=== PATIENT | female | born 1965 | race Caucasian/White ===

== ENCOUNTER 2019-03-26 07:41 | Outpatient (CLI) | payer BC, OTHER ==
[2019-03-26 08:54] LABS: BASOPHILS % (AUTO) 0.4 % (0.0-2.0); EOSINOPHILS # (AUTO) 0.2 K/uL (0.0-0.7); EOSINOPHILS % (AUTO) 2.6 % (0.0-7.0); HEMATOCRIT 39.6 % (31.2-41.9); HEMOGLOBIN 12.6 g/dL (10.9-14.3); LYMPHOCYTES # (AUTO) 1.9 K/uL (20.0-40.0); LYMPHOCYTES % (AUTO) 26.1 % (20.5-51.5); MEAN CORPUSCULAR HEMOGLOBIN 26.1 uug (24.7-32.8); MEAN CORPUSCULAR HGB CONC 32 g/dL (32.3-35.6); MEAN CORPUSCULAR VOLUME 81.8 fL (75.5-95.3); MONOCYTES # (AUTO) 0.7 K/uL (2.0-10.0); MONOCYTES % (AUTO) 9.2 % (0.0-11.0); NEUTROPHILS # (AUTO) 4.5 K/uL (1.8-8.9); NEUTROPHILS % (AUTO) 61.7 % (38.5-71.5); PLATELET COUNT (AUTO) 302 K/uL (179-408); RED BLOOD CELL COUNT(AUTO) 4.84 MIL/uL (3.63-4.92); WHITE BLOOD COUNT (AUTO) 7.2 K/uL (3.8-11.8)
[2019-03-26 09:11] LABS: *BILIRUBIN,URIN 2+ (NEGATIVE); *BLOOD, URINE NEGATIVE (NEGATIVE); *CLARITY,URINE CLEAR (CLEAR); *COLOR,URINE YELLOW (YELLOW); *KETONES,URINE 1+ (NEGATIVE); *UROBILINOGEN,URINE 0.2 E.U./dl (NORMAL); LEUKOCYTE ESTERASE ,URINE NEGATIVE (NEGATIVE); NITRITE, URINE NEGATIVE (NEGATIVE); UGLUCOSE NEGATIVE (NEGATIVE)
[2019-03-26 09:20] LABS: THYROID STIMULATING HORMONE 2.612 mIU/mL (0.358-3.740)
[2019-03-26 09:37] LABS: BILIRUBIN,TOTAL 0.6 mg/dL (0.2-1.0); CREATININE 1.1 mg/dL (0.6-1.3); POTASSIUM 3.5 mmol/L (3.5-5.1); TOTAL PROTEIN, SERUM 7.9 g/dL (6.4-8.2)
[2019-03-26 10:53] LABS: BACTERIA,URINE FEW /HPF (NONE SEEN); RBC,URINE 0-3 /HPF (0-3); SQUAMOUS EPITHELIAL CELL,UR FEW /HPF (NONE SEEN); WBC,URINE 0-3 /HPF (0-3)
[2019-03-27 06:06] LABS: FOLLICLE STIMULATION HORMONE 64.6 mIU/mL (.); LUTEINIZING HORMONE 26.3 mIU/mL (.)
== END 2019-03-26 23:59 | disposition home or self-care (01) ==
LOC: LAB 07:41
PROVIDERS: ATTEND Legal Medicine
DX: Z00.00 Encounter for general adult medical examination without abnormal findings (principal); I10 Essential (primary) hypertension; E03.9 Hypothyroidism, unspecified; D68.59 Other primary thrombophilia
CPT/HCPCS: 83001; 83002; 83550; 84443; 85025; 87086

== ENCOUNTER 2021-08-10 05:29 | Emergency (ER) | payer BC, OTHER ==
[~2021-08-10] VITALS: Ht 170.2 cm; Wt 90.7 kg
--- NOTE | 2021-08-10 06:20 | NUR ---
Patient eloped from facility. ER physician notified.
== END 2021-08-10 06:20 | disposition left against medical advice (07) ==
LOC: ER 05:43
DX: Z53.21 Procedure and treatment not carried out due to patient leaving prior to being seen by health care provider (principal)

== ENCOUNTER 2021-11-02 08:06 | Outpatient (CLI) | payer BC, OTHER ==
[2021-11-02 08:45] LABS: HEMATOCRIT 36.8 % (31.2-41.9); MEAN CORPUSCULAR HEMOGLOBIN 27.8 uug (24.7-32.8); MEAN CORPUSCULAR VOLUME 83.6 fL (75.5-95.3); PLATELET COUNT (AUTO) 256 K/uL (179-408)
[2021-11-02 09:18] LABS: BILIRUBIN,TOTAL 0.3 mg/dL (0.2-1.0); CREATININE 0.7 mg/dL (0.6-1.3); POTASSIUM 3.7 mmol/L (3.5-5.1); TOTAL PROTEIN, SERUM 7.3 g/dL (6.4-8.2); URIC ACID 3.9 mg/dL (2.6-6.0)
[2021-11-02 09:59] LABS: THYROID STIMULATING HORMONE 1.38 mIU/mL (0.358-3.740)
[2021-11-02 12:04] LABS: *BILIRUBIN,URIN NEGATIVE (NEGATIVE); *BLOOD, URINE NEGATIVE (NEGATIVE); *COLOR,URINE YELLOW (YELLOW); *KETONES,URINE NEGATIVE (NEGATIVE); *UROBILINOGEN,URINE 0.2 E.U./dl (NORMAL); LEUKOCYTE ESTERASE ,URINE NEGATIVE (NEGATIVE); NITRITE, URINE POSITIVE (NEGATIVE); UGLUCOSE NEGATIVE (NEGATIVE)
[2021-11-02 16:39] LABS: *CLARITY,URINE SLIGHTLY CLOUDY (CLEAR); BACTERIA,URINE FEW /HPF (NONE SEEN); RBC,URINE 0-3 /HPF (0-3); SQUAMOUS EPITHELIAL CELL,UR FEW /HPF (NONE SEEN)
[2021-11-02 16:40] LABS: URINE AMORPHOUS URATE MODERATE /HPF
== END 2021-11-02 23:59 | disposition home or self-care (01) ==
LOC: LAB 08:06
PROVIDERS: ATTEND Legal Medicine
DX: E03.9 Hypothyroidism, unspecified (principal); E55.9 Vitamin D deficiency, unspecified; E78.5 Hyperlipidemia, unspecified; D64.9 Anemia, unspecified; D68.59 Other primary thrombophilia; R53.1 Weakness; Z00.00 Encounter for general adult medical examination without abnormal findings
CPT/HCPCS: 36415; 82306; 82746; 83550; 84443; 84550; 85025; 85305; 87077; 87086

== ENCOUNTER 2022-04-07 07:20 | Outpatient (CLI) | payer BC, OTHER | END 2022-04-07 23:59 | disposition home or self-care (01) | LOC: LAB 07:20 | PROVIDERS: ATTEND Internal Medicine Gastroenterology | DX: Z01.812 Encounter for preprocedural laboratory examination (principal); Z20.822 Contact with and (suspected) exposure to COVID-19 ==

== ENCOUNTER 2022-04-10 07:47 | Day surgery (SDC) | payer BC, OTHER ==
[2022-04-10 08:37] LABS: HEMATOCRIT 39.5 % (31.2-41.9); MEAN CORPUSCULAR HEMOGLOBIN 26.4 uug (24.7-32.8); MEAN CORPUSCULAR VOLUME 82.1 fL (75.5-95.3); PLATELET COUNT (AUTO) 265 K/uL (179-408)
[2022-04-10 08:37] LABS: *BILIRUBIN,URIN NEGATIVE (NEGATIVE); *BLOOD, URINE NEGATIVE (NEGATIVE); *CLARITY,URINE CLEAR (CLEAR); *COLOR,URINE YELLOW (YELLOW); *KETONES,URINE NEGATIVE (NEGATIVE); *UROBILINOGEN,URINE 0.2 E.U./dl (NORMAL); LEUKOCYTE ESTERASE ,URINE NEGATIVE (NEGATIVE); NITRITE, URINE NEGATIVE (NEGATIVE); PH,URINE 5.5 (5.0-8.0); UGLUCOSE NEGATIVE (NEGATIVE)
[2022-04-10] MEDS ORDERED: FENTANYL CITRATE 100 MCG/2 ML AMPUL ONE (08:41)
[2022-04-10 08:43] LABS: CREATININE 0.8 mg/dL (0.6-1.3); POTASSIUM 3.7 mmol/L (3.5-5.1)
[2022-04-10 08:54] LABS: BILIRUBIN,TOTAL 0.4 mg/dL (0.2-1.0); TOTAL PROTEIN, SERUM 7.1 g/dL (6.4-8.2)
[2022-04-10] MEDS ORDERED: PROPOFOL 200 MG/20 ML BOTTLE ONE (10:55)
[2022-04-10] MEDS ORDERED: LIDOCAINE-MPF 2% 5 ML VIAL ONE (10:55)
== END 2022-04-10 11:33 | disposition home or self-care (01) ==
LOC: DS 07:47
PROVIDERS: ATTEND Internal Medicine Gastroenterology
DX: Z12.11 Encounter for screening for malignant neoplasm of colon (principal); K63.89 Other specified diseases of intestine; K64.8 Other hemorrhoids; I10 Essential (primary) hypertension; J45.909 Unspecified asthma, uncomplicated; Z79.899 Other long term (current) drug therapy; Z98.890 Other specified postprocedural states; Z88.0 Allergy status to penicillin; Z80.0 Family history of malignant neoplasm of digestive organs; Z79.01 Long term (current) use of anticoagulants
CPT/HCPCS: 45378; 71045; 80053; 81003; 85025; 85730; 36415; 93005; J3490; J3010; J7120; A4663

== ENCOUNTER 2022-09-12 13:44 | Emergency (ER) | payer BC, OTHER ==
[~2022-09-12] VITALS: Ht 170.2 cm; Wt 90.7 kg
[2022-09-12] MEDS ORDERED: provigil PO (14:00)
[2022-09-12] MEDS ORDERED: BUPR200T2 PO (14:00)
[2022-09-12] MEDS ORDERED: AMLO1TAB12 PO (14:00)
[2022-09-12 14:32] LABS: HEMATOCRIT 35.8 % (31.2-41.9); MEAN CORPUSCULAR HEMOGLOBIN 25.8 uug (24.7-32.8); MEAN CORPUSCULAR VOLUME 80.4 fL (75.5-95.3); PLATELET COUNT (AUTO) 324 K/uL (179-408)
[2022-09-12 14:52] LABS: ALANINE AMINOTRANSFERASE 30 U/L (14-59); ALKALINE PHOSPHATASE 126 U/L (50-136); ASPARTATE AMINOTRANSFERASE 13 U/L (15-37); BILIRUBIN,TOTAL 0.3 mg/dL (0.2-1.0); CARBON DIOXIDE 27 mmol/L (21-32); CHLORIDE 106 mmol/L (98-107); CREATININE 0.7 mg/dL (0.6-1.3); GLUCOSE 100 mg/dL (74-106); POTASSIUM 3.8 mmol/L (3.5-5.1); TOTAL PROTEIN, SERUM 7.1 g/dL (6.4-8.2); UREA NITROGEN, BLOOD 11 mg/dL (7-18)
--- NOTE | 2022-09-12 18:29 | NUR ---
MD discharge patient herself. Patient is an employee in our hospital. She verbalized understanding of discharge instructions. Gyne doctor Yaquelin was referred to this patient.
--- NOTE | 2022-09-12 18:30 | NUR ---
Patient discharged to home in stable condition with brisk steady gait. Written and verbal after care instructions given. Patient verbalized understanding and compliance of instructions. Stressed follow up with primary doctor and [employer] or return to ER for worsening s/s.
== END 2022-09-12 18:30 | disposition home or self-care (01) ==
LOC: ER 13:44
DX: N95.0 Postmenopausal bleeding (principal); D64.9 Anemia, unspecified; I10 Essential (primary) hypertension; F32.A Depression, unspecified; Z79.899 Other long term (current) drug therapy; Z88.0 Allergy status to penicillin
CPT/HCPCS: 36415; 76856; 85025; 85730; 86850; 86900; 86901; A4663

== ENCOUNTER 2024-07-16 07:45 | Emergency (ER) | payer BC, OTHER ==
[~2024-07-16] VITALS: Ht 170.2 cm; Wt 86.2 kg
[~2024-07-16 07:45] MED LIST: AMLO1TAB12 PO; BUPR200T2 PO; provigil PO
[2024-07-16 07:52] VITALS: O2SAT 99
[2024-07-16] MEDS ORDERED: FLAS1EAC2 TP (08:27)
[2024-07-16] MEDS ORDERED: FLAS1KIT2 TP (08:27)
== END 2024-07-16 08:55 | disposition home or self-care (01) ==
LOC: ER 07:45
DX: L98.499 Non-pressure chronic ulcer of skin of other sites with unspecified severity (principal); I10 Essential (primary) hypertension; F32.A Depression, unspecified; Z79.899 Other long term (current) drug therapy; Z98.51 Tubal ligation status; Z88.0 Allergy status to penicillin; Z88.7 Allergy status to serum and vaccine
CPT/HCPCS: A4606; A4663